=== PATIENT | male | born 1945 | race Caucasian/White ===

== ENCOUNTER 2021-11-19 01:22 | Day surgery (SDC) | payer MEDICARE, SELFPAY ==
[2021-11-10 12:18] VITALS: BMI 27.3
--- NOTE | 2021-11-10 13:46 | PC.NURSE ---
Spoke with patient on phone at approx. [phone] and he requested Vonda to give all health info and medication information for procedure and all info. regarding procedure to be conveyed to her.
--- NOTE | 2021-11-19 06:58 | WPDANESEPPF ---
Anes - Initial Pre Proc Eval Procedure: Operation Date: 11/19/21 08:30 Proposed Procedures p Colonoscopy - Yefri Suarez MD <Kyaw Golden, DO - Last Filed: 11/19/21 08:35> Date/Time: 11/19/21 06:58 <Kyaw Golden DO - Last Filed: 11/19/21 08:35> Surgeon: Yefri Suarez MD <Kyaw Golden, DO - Last Filed: 11/19/21 08:35> Pre Op Diagnosis: diarrhea <Kyaw Golden DO - Last Filed: 11/19/21 08:35> Patient Data Age: 76 Gender: M Height: 1.75 m Weight: 84 kg <Kyaw Golden, DO - Last Filed: 11/19/21 08:35> Allergies Allergy/AdvReac Type Severity Reaction Status Date / Time gabapentin AdvReac Intermediate Diarrhea Verified 11/19/21 07:45 SEAFOOD Allergy Severe NAUSEA/VOMITING, Uncoded 11/19/21 07:45 DIAHRREA <Kyaw Golden DO - Last Filed: 11/19/21 08:35> Home Medications Medication Instructions Recorded Confirmed Type aspirin 81 mg tablet,delayed 81 mg PO DAILY 10/29/21 11/10/21 History release clopidogrel 75 mg tablet 75 mg PO DAILY 10/29/21 11/10/21 History ezetimibe 10 mg tablet 10 mg PO DAILY 10/29/21 11/10/21 History glipizide 2.5 mg tablet, extended 2.5 mg PO DAILY 10/29/21 11/10/21 History release 24 hr losartan 100 mg tablet 100 mg PO DAILY 10/29/21 11/10/21 History metformin 1,000 mg tablet 1,000 mg PO BID 10/29/21 11/10/21 History metoprolol succinate 25 mg 25 mg PO DAILY 10/29/21 11/10/21 History tablet,extended release 24 hr semaglutide 1 mg/dose (4 mg/3 mL) 1 mg SUBCUT WEEKLY 10/29/21 11/10/21 History subcutaneous pen injector cholecalciferol (vitamin D3) 25 mcg PO DAILY 11/10/21 11/10/21 History [Vitamin D3] cyanocobalamin (vitamin B-12) 1,000 mcg PO DAILY 11/10/21 11/10/21 History [Vitamin B-12] <Kyaw Golden DO - Last Filed: 11/19/21 08:35> Patient hx anesthesia problems: none <Stefania Marrero CRNA - Last Filed: 11/19/21 08:21> Family hx anesthesia problems: none <Stefania Marreor CRNA - Last Filed: 11/19/21 08:21> Results Review: All pre-operative results and documents have been reviewed as part of the pre-operative evaluation. <Kyaw Golden DO - Last Filed: 11/19/21 08:35> [facility] Past Medical History Medical History: Medical History (Updated 11/19/21 @ 08:35 by Kyaw Golden DO) Arthritis Coronary artery disease Diabetes DVT (deep venous thrombosis) Encounter for screening colonoscopy Factor V Leiden Heart attack Heart disease Hypertension RAMY (obstructive sleep apnea) no CPAP after weight loss <Kyaw Golden DO - Last Filed: 11/19/21 08:35> Surgical History Surgical History: Surgical History (Updated 11/19/21 @ 08:35 by Kyaw Golden DO) History of coronary artery stent placement stentx1 2014, stentx2 03/2021 <Kyaw Golden DO - Last Filed: 11/19/21 08:35> Social History Social History: Social History Smoking packs per day: 1 Smoking cigarettes per day: 20.0 Years smoked: 33 Smoking pack-years: 33.00 Smoking status: Former smoker Tobacco type: cigarettes Alcohol intake: never Substance use: never Substance use type: does not use Living arrangements: with family Spiritual care concerns: No <Kyaw Golden DO - Last Filed: 11/19/21 08:35> Anes - Eval Final PreProcedure Day of Procedure 11/19/21 06:58 <Kyaw Golden DO - Last Filed: 11/19/21 08:35> Patient weight: overweight <Kyaw Golden DO - Last Filed: 11/19/21 08:35> Heart: regular rate and rhythm <Kyaw Golden DO - Last Filed: 11/19/21 08:35> Lungs: clear to auscultation and normal air movement <Kyaw Golden, DO - Last Filed: 11/19/21 08:35> Airway: Mallampati scale class III <Kyaw Golden DO - Last Filed: 11/19/21 08:35
[2021-11-19 07:47] VITALS: BP 110/74; PULSE 78; RESP 20; TEMP 36.1; O2SAT 97
[2021-11-19] MEDS: LACTATED RINGERS 1,000 ML 150 ML IV CONT (07:57)
[2021-11-19 08:06] LABS: Glucose Point of Care 174 mg/dl (65-105)
--- NOTE | 2021-11-19 08:11 | WPDGICN ---
Assessment and Plan Assessment and plan (1) History of colon polyps: Code(s): Z86.010 - Personal history of colonic polyps Status: Acute Assessment and Plan: Patient has a prior history of colon polyps removed from the colon 2015. Plan is for surveillance colonoscopy at this time and should consider this at intervals in the future. (2) Encounter for screening colonoscopy: Code(s): Z12.11 - Encounter for screening for malignant neoplasm of colon Status: Acute GI Consult Note Consult date/time: 11/19/21 08:11 HPI: Dannie Soares is a 76 year old male Presents for screening colonoscopy. Patient has a history of colon polyps removed [place] [address] Harrison in [facility]. Patient presents today for follow-up screening colonoscopy. Patient reports his current weight appetite bowel movements are normal. He states that he was briefly on gabapentin for 2 months and during this interval had diarrhea. The diarrhea promptly improved upon discontinuing this medication. Past medical history is significant for a DVT in the lower extremity that is now resolved. Family history is noncontributory. Review of Systems Review of Systems: All systems reviewed & are unremarkable except as noted in HPI and below PMFSH Past Medical History Medical History (Updated 11/19/21 @ 08:13 by Yefri Suarez MD) Arthritis Coronary artery disease Diabetes DVT (deep venous thrombosis) Encounter for screening colonoscopy Factor V Leiden Heart attack Heart disease Hypertension RAMY (obstructive sleep apnea) Surgical History Surgical History (Updated 11/19/21 @ 07:00 by Kyaw Golden DO) History of coronary artery stent placement stentx1 2014, stentx2 2020 Social History Social History (Updated 10/29/21 @ 09:00 by Nadege Reddy CMA) Smoking packs per day: 1 Smoking cigarettes per day: 20.0 Years smoked: 33 Smoking pack-years: 33.00 Smoking status: Former smoker Tobacco type: cigarettes Alcohol intake: never Substance use: never Substance use type: does not use Living arrangements: with family Spiritual care concerns: No Meds Home Medications and Allergies Home Medications Medication Instructions Recorded Confirmed Type aspirin 81 mg tablet,delayed 81 mg PO DAILY 10/29/21 11/10/21 History release clopidogrel 75 mg tablet 75 mg PO DAILY 10/29/21 11/10/21 History ezetimibe 10 mg tablet 10 mg PO DAILY 10/29/21 11/10/21 History glipizide 2.5 mg tablet, extended 2.5 mg PO DAILY 10/29/21 11/10/21 History release 24 hr losartan 100 mg tablet 100 mg PO DAILY 10/29/21 11/10/21 History metformin 1,000 mg tablet 1,000 mg PO BID 10/29/21 11/10/21 History metoprolol succinate 25 mg 25 mg PO DAILY 10/29/21 11/10/21 History tablet,extended release 24 hr semaglutide 1 mg/dose (4 mg/3 mL) 1 mg SUBCUT WEEKLY 10/29/21 11/10/21 History subcutaneous pen injector cholecalciferol (vitamin D3) 25 mcg PO DAILY 11/10/21 11/10/21 History [Vitamin D3] cyanocobalamin (vitamin B-12) 1,000 mcg PO DAILY 11/10/21 11/10/21 History [Vitamin B-12] Allergies Allergy/AdvReac Type Severity Reaction Status Date / Time gabapentin AdvReac Intermediate Diarrhea Verified 11/19/21 07:45 SEAFOOD Allergy Severe NAUSEA/VOMITING, Uncoded 11/19/21 07:45 DIAHRREA Vital Signs Vital Signs - 24 hr 11/19/21 07:47 Temperature 97.0 F L Pulse Rate 78 Respiratory Rate 20 Blood Pressure 110/74 Pulse Oximetry 97 Exam Narrative: Physical exam reveals patient to be alert. Vital signs stable. HEENT exam is unremarkable. Patient is anicteric. Lungs are clear to auscultation and percussion. Heart is without murmur or extra sounds. Abdomen bowel sounds are present soft nontender with no hepatosplenomegaly. Digital external rectal exam is normal.
[2021-11-19 09:01] VITALS: BP 131/90; PULSE 83; RESP 21; O2SAT 95
[2021-11-19 09:11] VITALS: BP 125/82; PULSE 78; RESP 20; O2SAT 96
[2021-11-19 09:21] VITALS: BP 126/79; PULSE 72; RESP 20; O2SAT 95
== END 2021-11-19 09:30 | disposition home or self-care (01) ==
PROVIDERS: PCP Family Medicine; Visit Provider Internal Medicine Gastroenterology
PROC: 0DJD8ZZ Inspection of Lower Intestinal Tract, Via Natural or Artificial Opening Endoscopic (ICD-10-PCS; CPT 45378; principal; 2021-11-19 08:30)
DX: Z12.11 Encounter for screening for malignant neoplasm of colon (principal); D12.4 Benign neoplasm of descending colon; K64.8 Other hemorrhoids; I25.10 Atherosclerotic heart disease of native coronary artery without angina pectoris; E11.9 Type 2 diabetes mellitus without complications; D68.51 Activated protein C resistance; I25.2 Old myocardial infarction; I11.9 Hypertensive heart disease without heart failure; G47.33 Obstructive sleep apnea (adult) (pediatric); Z86.718 Personal history of other venous thrombosis and embolism; Z95.5 Presence of coronary angioplasty implant and graft; Z87.891 Personal history of nicotine dependence; Z79.02 Long term (current) use of antithrombotics/antiplatelets; Z79.84 Long term (current) use of oral hypoglycemic drugs; Z79.82 Long term (current) use of aspirin; Z79.899 Other long term (current) drug therapy
CPT/HCPCS: 45385; 82948; 88305; J2704; J7120